=== PATIENT | male | born 1990 | race Caucasian/White ===

== ENCOUNTER 2019-08-27 18:05 | Emergency (ER) | payer OTHER ==
[~2019-08-27] VITALS: Ht 180 cm; Wt 101.1 kg
[~2019-08-27 18:05] MED LIST: DOXY100T19 PO; METR-145 PO
[2019-08-27 18:33] LABS: BILIRUBIN,URINE NEGATIVE (NEGATIVE); CLARITY,URINE SLIGHTLY CLOUDY; COLOR,URINE YELLOW; GLUCOSE, URINE (UA) NEGATIVE (NEGATIVE); KETONES,URINE NEGATIVE (NEGATIVE); LEUKOCYTE ESTERASE ,URINE NEGATIVE (NEGATIVE); NITRITE,URINE NEGATIVE (NEGATIVE); PH,URINE 6.5 (5-9); PROTEIN,URINE NEGATIVE (NEGATIVE)
[2019-08-27 18:39] LABS: BASOPHILS % (AUTO) 0 % (0-10); EOSINOPHILS % (AUTO) 1 % (0-10); HEMATOCRIT 43 % (40-54); HEMOGLOBIN 14.8 G/DL (13.3-17.7); LYMPHOCYTES # (AUTO) 1.7 X 10^3 (1.0-4.0); LYMPHOCYTES % (AUTO) 25 % (12-44); MEAN CORPUSCULAR HEMOGLOBIN 28 PG (25-34); MEAN CORPUSCULAR HGB CONC 34 G/DL (32-36); MEAN CORPUSCULAR VOLUME 81 FL (80-99); MEAN PLATELET VOLUME 9.5 FL (7.4-10.4); MONOCYTES # (AUTO) 1.2 X 10^3 (0.0-1.0); MONOCYTES % (AUTO) 17 % (0-12); NEUTROPHILS % (AUTO) 58 % (42-75); PLATELET COUNT 229 10^3/uL (130-400); RED CELL DISTRIBUTION WIDTH 13.4 % (10.0-14.5); WHITE BLOOD COUNT 6.9 10^3/uL (4.3-11.0)
[2019-08-27 18:39] LABS: BACTERIA,URINE NEGATIVE /HPF
[2019-08-27] MEDS ORDERED: NS 100 ML (IVPB) BAG IV ONE (18:45)
[2019-08-27] MEDS ORDERED: IOHEXOL 350 MG/ML 100 ML (OMNIPAQUE 350) VIAL IV ONE (18:45)
[2019-08-27] MEDS ORDERED: HOLD METFORMIN - RECEIVED CONTRAST 20 ML VIAL IV SCH (18:45)
--- NOTE | 2019-08-27 18:54 | Diagnostic Imaging Report ---
CLINICAL INDICATION: Patient was moving paneling upstairs and was knocked backwards when he reached a turn. Patient states he fell backwards down about seven steps. Patient now has onset of fever this afternoon. EXAM: Chest x-ray PA and lateral views. COMPARISONS: Chest x-ray dated 02/19/2016. FINDINGS: Lungs/pleura: Lungs are clear. There is no pneumothorax. There is no pleural effusion. Mediastinum: Unremarkable. Pulmonary vasculature: Unremarkable. Heart: Unremarkable. Bones/extrathoracic soft tissue: Unremarkable. IMPRESSION: There is no radiographic evidence of acute cardiopulmonary process. Dictated by: Dictated on workstation # [id number]
[2019-08-27 18:58] LABS: PROTHROMBIN TIME PATIENT 13.8 SEC (12.2-14.7)
[2019-08-27 19:04] LABS: ALANINE AMINOTRANSFERASE 26 U/L (0-55); ALBUMIN 4.5 GM/DL (3.2-4.5); ALKALINE PHOSPHATASE 49 U/L (40-136); AMYLASE 48 U/L (25-125); BILIRUBIN,TOTAL 0.5 MG/DL (0.1-1.0); BUN/CREATININE RATIO 12; CARBON DIOXIDE 24 MMOL/L (21-32); CHLORIDE 102 MMOL/L (98-107); GFR ESTIMATED > 60; GLUCOSE 97 MG/DL (70-105); LIPASE 30 U/L (8-78); POTASSIUM 4.2 MMOL/L (3.6-5.0); SODIUM 135 MMOL/L (135-145); TOTAL PROTEIN 7.8 GM/DL (6.4-8.2)
--- NOTE | 2019-08-27 19:07 | Diagnostic Imaging Report ---
CLINICAL INDICATION: Patient was moving paneling upstairs and was knocked backwards when he reached a turn. Patient states he fell backwards down about seven steps. EXAM: Head CT without IV contrast. Axial CT scan of the cervical spine with sagittal and coronal reformations. Auto Exposure Controls were utilized during the CT exam to meet ALARA standards for radiation dose reduction. COMPARISON: None. FINDINGS: Head CT: There is no evidence of acute cerebral infarct, intracranial hemorrhage, or gross mass effect. The brain parenchymal volume appears appropriate for patient's age. There is normal garrido-white matter distinction. There is no significant midline shift or herniation. There is no evidence of hydrocephalus. The basal cisterns are unremarkable. The skull, extracranial soft tissue, and orbits are unremarkable. There is a small amount of mucosal thickening involving the sphenoid sinus. Temporal bones show no significant abnormality. Cervical spine: There is no acute cervical spine fracture or dislocation. There is straightening of the cervical spine posture which is nonspecific. There is no significant central canal or neural foramen narrowing. There is no significant neck soft tissue abnormality. Visualized upper lung balbuena are clear. There is note of enlargement of the bilateral palatine tonsils. IMPRESSION: 1: There is no evidence of acute intracranial process. There is no intracranial hemorrhage or skull fracture. 2: There is no acute cervical spine fracture or dislocation. There is straightening of the cervical spine posture which is nonspecific. 3: Incidental note of enlargement of the bilateral palatine tonsils. Dictated by: Dictated on workstation # [id number]
--- NOTE | 2019-08-27 19:12 | Diagnostic Imaging Report ---
CLINICAL INDICATION: Patient was moving a panel upstairs and was knocked backwards when he reached a turn. Patient states he fell backwards down about 7 steps. Patient has new onset of fever this afternoon. Exam: Axial CT scan of the thoracic and lumbar spine performed without IV contrast. Sagittal and coronal reformations were performed. Bone and soft tissue windows were created. Auto Exposure Controls were utilized during the CT exam to meet ALARA standards for radiation dose reduction. Comparison: None. Findings: There is no acute thoracic or lumbar fracture or dislocation. 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 Thoracic and lumbar spine has normal alignment. The visualized extrathoracic, and lumbar soft tissue structures are unremarkable. Impression: There is no acute thoracic spine and lumbar spine fracture or dislocation. Dictated by: Dictated on workstation # [id number]
--- NOTE | 2019-08-27 19:37 | Diagnostic Imaging Report ---
CLINICAL INDICATION: Patient was moving panel upstairs and was knocked backwards when he reached a turn. Patient states he fell backwards down about seven steps. Patient has new onset of fever this afternoon. EXAM: CT scan of the chest, abdomen, and pelvis performed with 100 mL of IV contrast. Coronal and sagittal reformatted images were created. Auto Exposure Controls were utilized during the CT exam to meet ALARA standards for radiation dose reduction. COMPARISON: CT scan of the abdomen and pelvis performed without contrast dated 02/16/2016. FINDINGS: CT Chest: There is minimal dependent atelectasis involving the posterior aspects of both lungs. Otherwise, lungs are clear. There is no pleural effusion or pneumothorax. The pulmonary bronchi are unremarkable. The thyroid gland and mediastinal structures are unremarkable for patient's age. Likely thymus tissue in the anterior mediastinum seen. There is no axillary, hilar, or mediastinal lymphadenopathy. There is no mediastinal hematoma. The thoracic aorta is intact with no aneurysmal dilation or dissection. The abdominal aorta, major branching arteries, and bilateral iliac arteries are patent without vascular dissection or abnormality. CT abdomen and pelvis: Calcified granuloma is seen in the spleen. Otherwise, the liver, spleen, pancreas, gallbladder, and adrenal glands are unremarkable. Both kidneys are unremarkable with no hydronephrosis, stones, or mass. There is no intra-abdominal free air or free fluid. The appendix is unremarkable. There is no viscus injury. There is no intestinal obstruction. The bladder and prostate gland are unremarkable. The extra-abdominal and extra-pelvic soft tissue structures are unremarkable. The visualized portions of the pelvis and hips show no acute fracture. Again seen congenitally unfused right L1 transverse process. There is no thoracic spine or lumbar spine fracture. There is no rib fracture seen. The visualized portions of the clavicle and scapula are unremarkable. IMPRESSION: Unremarkable CT scan of the chest, abdomen, and pelvis with no acute abnormality. There is no solid organ or viscus injury. There is no fracture or dislocation seen. Dictated by: Dictated on workstation # [id number]
[2019-08-27] MEDS ORDERED: MELO15TA14 PO (19:53)
[2019-08-27] MEDS ORDERED: CYCL10TA9 PO (19:53)
--- NOTE | 2019-08-27 19:54 | ED Fall/Injury ---
General Chief Complaint: Trauma-Non Activation Stated Complaint: FELL DOWN A FLIGHT OF STAIRS Nursing Triage Note: Pt ambulates to triage with c/o lower back pain and shoulder pain after falling down 7 stairs this am. Pt states he took ibuprofen, applied a heating pad and soaked in a bath with pain unrelieved. Pt denies LOC, states he fell and landed on his back, hit the back of his neck. Pt states he started having chills around noon, is febrile on arrival. Source: patient History of Present Illness Date Seen by Provider: Aug 27, 2019 Time Seen by Provider: 18:18 Initial Comments PT ARRIVES VIA POV FROM HOME PT STATES HE SLIPPED AND FELL DOWN 6-7 STAIRS AROUND 0930 THIS AM AT WORK. ( WORKS [employer] ) STATES HE FELL BACKWARDS AND HIT THE BACK OF HIS NECK AND HIS MID AND LOWER BACK AND LEFT FLANK AREA WHEN HE FELL NO LOSS OF CONSCIOUSNESS NO VISION CHANGES NO PARESTHESIAS OR MOTOR DEFICITS SLIGHT NAUSEA, NO VOMITING C/O SLIGHT HEADACHE TO RIGHT POSTERIOR/OCCIPITAL AREA. NO DIZZINESS NO PAIN OR INJURIES TO ANTERIOR CHEST OR ABDOMEN NO PAIN IN ARMS OR LEGS. NO PRIOR NECK OR BACK PROBLEMS STATES HE WENT HOME AND TOOK 4 OTC IBUPROFEN AT NOON, AND SOAKED IN HOT BATH, AND PUT HEATING PAD ON SORE AREAS--ALL WITHOUT RELIEF STATES HE WAS HAVING "CHILLS" AROUND NOON TODAY. STATES HE DID REPORT THIS TO HIS EMPLOYER Location Injury Occurred: work site PCP: [facility] Allergies and Home Medications Allergies Coded Allergies: No Known Drug Allergies (Unverified , 02/19/16) Home Medications Cyclobenzaprine HCl 10 Mg Tablet, 10 MG PO Q8H Prescribed by: MINDY DE ANDA on 08/27/191952 Doxycycline Monohydrate 100 Mg Tablet, 100 MG PO Q8H, (Reported) Meloxicam 15 Mg Tablet, 15 MG PO DAILY Prescribed by: MINDY DE ANDA on 08/27/191952 Metronidazole 500 Mg Tablet, 500 MG PO Q8H, (Reported) Patient Home Medication List Home Medication List Reviewed: Yes Review of Systems Review of Systems Constitutional: see HPI, chills Eyes: No Symptoms Reported; Denies Vision Changes Ears, Nose, Mouth, Throat: no symptoms reported; denies ear discharge Respiratory: no symptoms reported; No cough, No short of breath Cardiovascular: no symptoms reported; No chest pain, No edema, No palpitations, No syncope Gastrointestinal: No abdominal pain, No constipation, No diarrhea, No loss of appetite; nausea; No vomiting Genitourinary: no symptoms reported; No dysuria, No hematuria, No pain Musculoskeletal: see HPI, back pain, neck pain Skin: no symptoms reported Psychiatric/Neurological: See HPI, Headache; Denies Numbness, Denies Paresthesia, Denies Seizure, Denies Tingling, Denies Tremors, Denies Weakness Past Uvnldsm-Gxavvb-Utijbh Hx Patient Social History Alcohol Use: Occasionally Uses Recreational Drug Use: Yes (THC YEARS AGO. ) Smoking Status: Never a Smoker 2nd Hand Smoke Exposure: No Recent Foreign Travel: No Contact w/Someone Who Travel: No Recent Infectious Disease Expo: No Recent Hopitalizations: No Physical Abuse: No Sexual Abuse: No Mistreated: No Fear: No Seasonal Allergies Seasonal Allergies: No Past Medical History Surgeries: Yes (LEFT KIDNEY SURGERY AFTER ) Renal Respiratory: No Cardiac: No Neurological: No Genitourinary: Yes (CONGENITAL PROBLEM WITH LEFT KIDNEY-S/P SURGERY . ) Gastrointestinal: Yes Colitis Musculoskeletal: No Endocrine: No Cancer: No Psychosocial: No Integumentary: No Blood Disorders: No Physical Exam Vital Signs Vital Signs - First Documented 08/27/19 18:07 Temp 38.0 Pulse 105 Resp 20 B/P (MAP) 128/88 (101) Pulse Ox 98 O2 Delivery Room Air Capillary Refill : Less Than 3 Seconds Height, Weight, BMI Height: 6'0" Weight: 222lbs. oz. 100.745947ye; 31.00 BMI Method:Stated General Appearance: WD/WN, no apparent distress HEENT: PERRL/EOMI, normal ENT inspection, TMs normal, pharynx normal Neck: full range of motion, tender lateral, tender midline Cardiovascular: normal peripheral pulses, regular rate, rhythm, no edema, no JVD, no murmur Respiratory: chest non-tender, normal breath sounds, no respiratory distress, no accessory muscle use Gastrointestinal: normal bowel sounds, non tender, soft, no organomegaly, no pulsatile mass Back: CVA tenderness (L), decreased range of motion, vertebral tenderness (TEND ERNESS FROM MID THORACICS TO MID LUMBAR AREA. PATCHY AREAS OF ERYTHEMA TO MID BACK AND TO LEFT SCAPULAR AREA. ERYTHEMA AND SWELLING AND TENDERNESS TO LEFT FLANK AREA. ) Extremities: normal range of motion, non-tender, normal inspection, no pedal edema, no calf tenderness, normal capillary refill Neurologic/Psychiatric: wood heel flap inserter II-XII nml as tested, no motor/sensory deficits, alert, normal mood/affect, oriented x 3 Skin: normal color, warm/dry Bonnie Coma Score Best Eye Response: (4) Open Spontaneously Best Verbal Response: (5) Oriented Best Motor Response: (6) Obeys Commands Bonnie Total: 15 Progress/Results/Core Measures Results/Orders Lab Results Laboratory Tests Test 08/27/19 18:27 08/27/19 18:36 Range/Units Urine Color YELLOW Urine Clarity SLIGHTLY CLOUDY Urine pH 6.5 5-9 Urine Specific Parker 1.015 L 1.016-1.022 Urine Protein NEGATIVE NEGATIVE Urine Glucose (UA) NEGATIVE NEGATIVE Urine Ketones NEGATIVE NEGATIVE Urine Nitrite NEGATIVE NEGATIVE Urine Bilirubin NEGATIVE NEGATIVE Urine Urobilinogen 1 NORMAL MG/DL Urine Leukocyte Esterase NEGATIVE NEGATIVE Urine RBC (Auto) 2+ H NEGATIVE Urine RBC 5-10 H /HPF Urine WBC NONE /HPF Urine Squamous Epithelial Cells NONE /HPF Urine Crystals NONE /LPF Urine Bacteria NEGATIVE /HPF Urine Casts NONE /LPF Urine Mucus NEGATIVE /LPF Urine Culture Indicated NO White Blood Count 6.9 4.3-11.0 10^3/uL Red Blood Count 5.30 4.35-5.85 10^6/uL Hemoglobin 14.8 13.3-17.7 G/DL Hematocrit 43 40-54 % Mean Corpuscular Volume 81 80-99 FL Mean Corpuscular Hemoglobin 28 25-34 PG Mean Corpuscular Hemoglobin Concent 34 32-36 G/DL Red Cell Distribution Width 13.4 10.0-14.5 % Platelet Count 229 130-400 10^3/uL Mean Platelet Volume 9.5 7.4-10.4 FL Neutrophils (%) (Auto) 58 42-75 % Lymphocytes (%) (Auto) 25 12-44 % Monocytes (%) (Auto) 17 H 0-12 % Eosinophils (%) (Auto) 1 0-10 % Basophils (%) (Auto) 0 0-10 % Neutrophils # (Auto) 4.0 1.8-7.8 X 10^3 Lymphocytes # (Auto) 1.7 1.0-4.0 X 10^3 Monocytes # (Auto) 1.2 H 0.0-1.0 X 10^3 Eosinophils # (Auto) 0.0 0.0-0.3 10^3/uL Basophils # (Auto) 0.0 0.0-0.1 10^3/uL Prothrombin Time 13.8 12.2-14.7 SEC INR Comment 1.0 0.8-1.4 Activated Partial Thromboplast Time 36 H 24-35 SEC Sodium Level 135 135-145 MMOL/L Potassium Level 4.2 3.6-5.0 MMOL/L Chloride Level 102 98-107 MMOL/L Carbon Dioxide Level 24 21-32 MMOL/L Anion Gap 9 5-14 MMOL/L Blood Urea Nitrogen 14 7-18 MG/DL Creatinine 1.20 0.60-1.30 MG/DL Estimat Glomerular Filtration Rate > 60 BUN/Creatinine Ratio 12 Glucose Level 97 70-105 MG/DL Calcium Level 9.0 8.5-10.1 MG/DL Corrected Calcium 8.6 8.5-10.1 MG/DL Total Bilirubin 0.5 0.1-1.0 MG/DL Aspartate Amino Transf (AST/SGOT) 20 5-34 U/L Alanine Aminotransferase (ALT/SGPT) 26 0-55 U/L Alkaline Phosphatase 49 40-136 U/L Total Protein 7.8 6.4-8.2 GM/DL Albumin 4.5 3.2-4.5 GM/DL Amylase Level 48 25-125 U/L Lipase 30 8-78 U/L My Orders Orders - MINDY DE ANDA K DO Ua Culture If Indicated (08/27/19 18:26) Ct Head/Cervical Spine Wo (08/27/19 18:26) Ct Thoracic/Lumbar Spine Wo (08/27/19 18:26) Chest Pa/Lat (2 View) (08/27/19 18:26) Ed Iv/Invasive Line Start (08/27/19 18:) Amylase (08/27/19 18:) Cbc With Automated Diff (08/27/19 18:) Comprehensive Metabolic Panel (08/27/19 18:) Lipase (08/27/19 18:) Protime With Inr (08/27/19 18:) Partial Thromboplastin Time (08/27/19 18:) Ct Chest/Abdomen/Pelvis W (08/27/19 18:26) Iohexol Injection (Omnipaque 350 Mg/Ml 1 (08/27/19 18:45) Received Contrast (Hold Metformin- Contr (08/27/19 18:45) Ns (Ivpb) (Sodium Chloride 0.9% Ivpb Bag (08/27/19 18:45) Ketorolac Injection (Toradol Injection) (08/27/19 20:00) Orphenadrine Injection (Norflex Injectio (08/27/19 20:00) Medications Given in ED Current Medications Medications Dose Ordered Sig/Rex Route Start Time Stop Time Status Last Admin Dose Admin Iohexol 100 ml ONCE ONCE IV 08/27/19 18:45 08/27/19 18:46 DC 08/27/19 19:09 100 ML Ketorolac Tromethamine 30 mg ONCE ONCE IVP 08/27/19 20:00 08/27/19 20:01 08/27/19 19:51 30 MG Orphenadrine Citrate 60 mg ONCE ONCE IV 08/27/19 20:00 08/27/19 20:01 08/27/19 19:51 60 MG Sodium Chloride 100 ml ONCE ONCE IV 08/27/19 18:45 08/27/19 18:46 DC 08/27/19 19:09 100 ML Vital Signs/I&O 08/27/19 18:07 Temp 38.0 Pulse 105 Resp 20 B/P (MAP) 128/88 (101) Pulse Ox 98 O2 Delivery Room Air Blood Pressure Mean: 101 Diagnostic Imaging Comments CXR--NO ACUTE PROCESS CT HEAD/CERVICAL SPINE--NO ACUTE PROCESS CT THORACIC AND LUMBAR SPINE--NO ACUTE PROCESS CT CHEST/ABDOMEN/PELVIS--NO ACUTE PROCESS ALL PER RADIOLOGIST REPORTS AT 1943 Reviewed: Reviewed by Me Departure Impression Primary Impression: S/P FALL DOWN STAIRS Additional Impressions: LEFT FLANK CONTUSION CERVICAL STRAIN AND CONTUSION MID AND LOW BACK STRAIN AND CONTUSION Microscopic hematuria Disposition: 01 HOME, SELF-CARE Condition: Stable Departure-Patient Inst. Referrals: [facility] (PCP/Family) Primary Care Physician Patient Instructions: Cervical Muscle Strain (DC), Contusion (DC), Lumbar Muscle Strain (DC), Muscle Strain (DC) Add. Discharge Instructions: ICE TO SORE AREAS AT 20 MINUTE INTERVALS FOR FIRST 24 HOURS, THEN ALTERNATE ICE AND HEAT AT 20 MINUTE INTERVALS FOLLOW UP WITH [facility] TOMORROW FOR FURTHER CARE All discharge instructions reviewed with patient and/or family. Voiced understanding. Scripts Meloxicam (Mobic) 15 Mg Tablet 15 MG PO DAILY, #10 TAB Prov: MINDY DE ANDA DO 08/27/19 Cyclobenzaprine HCl (Cyclobenzaprine HCl) 10 Mg Tablet 10 MG PO Q8H, #15 TAB Prov: MINDY DE ANDA DO 08/27/19 MINDY DE ANDA DO Aug 27, 2019 19:53
[2019-08-27] MEDS ORDERED: KETOROLAC 30 MG/ML VIAL IVP ONE (20:00)
[2019-08-27] MEDS ORDERED: ORPHENADRINE 60 MG/2 ML (NORFLEX) AMP IV ONE (20:00)
[2019-08-27 20:09] VITALS: BP 123/89
--- NOTE | 2019-08-27 20:11 | NUR ---
Patient given copy of work comp paperwork.
== END 2019-08-27 20:11 | disposition home or self-care (01) ==
LOC: EDUNIT# 18:05 → ER 18:09
DX: S16.1XXA Strain of muscle, fascia and tendon at neck level, initial encounter (principal); S39.012A Strain of muscle, fascia and tendon of lower back, initial encounter; S29.012A Strain of muscle and tendon of back wall of thorax, initial encounter; S30.1XXA Contusion of abdominal wall, initial encounter; R31.21 Asymptomatic microscopic hematuria; R40.2142 Coma scale, eyes open, spontaneous, at arrival to emergency department; R40.2252 Coma scale, best verbal response, oriented, at arrival to emergency department; R40.2362 Coma scale, best motor response, obeys commands, at arrival to emergency department; W10.9XXA Fall (on) (from) unspecified stairs and steps, initial encounter
CPT/HCPCS: 36415; 70450; 71046; 71260; 72125; 72128; 72131; 74177; 80053; 81000; 82150; 83690; 85025; 85610; 85730